=== PATIENT | male | born 1970 | race Caucasian/White ===

== ENCOUNTER → 2021-11-08 09:34 | Outpatient (BNVA) | payer BC, SELFPAY | PROVIDERS: Visit Provider Emergency Medicine | DX: R68.89 Other general symptoms and signs (principal); Z20.822 Contact with and (suspected) exposure to COVID-19; R11.0 Nausea; R11.2 Nausea with vomiting, unspecified | CPT/HCPCS: 87400; 87635 ==

== ENCOUNTER → 2025-05-31 09:55 | Outpatient (BNVA) | payer BC, SELFPAY | PROVIDERS: Visit Provider Family Medicine | DX: E11.9 Type 2 diabetes mellitus without complications (principal); R79.89 Other specified abnormal findings of blood chemistry; I10 Essential (primary) hypertension | CPT/HCPCS: 80053; 80061; 82043; 83036; 84403; 85025 ==